=== PATIENT | female | born 1950 | race Caucasian/White ===

== ENCOUNTER 2016-11-04 08:51 | Outpatient (CLI) | payer OTHER | END 2016-11-04 19:50 | disposition home or self-care (01) | LOC: SMA 08:51 | PROVIDERS: ATTEND Obstetrics & Gynecology | DX: Z12.31 Encounter for screening mammogram for malignant neoplasm of breast (principal) | CPT/HCPCS: 77067; G0202 ==

== ENCOUNTER 2018-07-21 09:28 | Outpatient (CLI) | payer OTHER | END 2018-07-21 21:05 | disposition home or self-care (01) | LOC: SMA 09:28 | PROVIDERS: ATTEND Obstetrics & Gynecology | DX: Z12.31 Encounter for screening mammogram for malignant neoplasm of breast (principal) | CPT/HCPCS: 77067 ==

== ENCOUNTER 2020-02-02 09:25 | Outpatient (CLI) | payer OTHER | END 2020-02-02 20:18 | disposition home or self-care (01) | LOC: SMA 09:25 | PROVIDERS: ATTEND Obstetrics & Gynecology | DX: Z12.31 Encounter for screening mammogram for malignant neoplasm of breast (principal) | CPT/HCPCS: 77067 ==

== ENCOUNTER 2020-03-16 09:08 | Outpatient (CLI) | payer OTHER | END 2020-03-16 20:12 | disposition home or self-care (01) | LOC: SUS 09:08 | PROVIDERS: ATTEND Obstetrics & Gynecology | DX: R92.2 Inconclusive mammogram (principal) | CPT/HCPCS: 76641 ==

== ENCOUNTER 2022-01-23 09:06 | Outpatient (CLI) | payer OTHER | END 2022-01-23 20:46 | disposition home or self-care (01) | LOC: SMA 09:06 | PROVIDERS: ATTEND Obstetrics & Gynecology | DX: Z12.31 Encounter for screening mammogram for malignant neoplasm of breast (principal); M16.11 Unilateral primary osteoarthritis, right hip; M25.551 Pain in right hip | CPT/HCPCS: 73502; 77067 ==